=== PATIENT | female | born 1985 | race Caucasian/White ===

== ENCOUNTER 2018-02-25 10:07 | Emergency (ER) | payer OTHER ==
[2018-02-25 10:22] VITALS: BMI 19.8
[2018-02-25] MEDS ORDERED: SODIUM CHLORIDE 1,000 ML IV STA (10:44)
--- NOTE | 2018-02-25 10:44 | PDOC ---
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 She describes the pain as constant, pressure-like in sensation, 8/10 in severity, with radiation up to her left shoulder. The patient states that her symptoms are similar to what she experienced with her flare up of pancreatitis back in June 2015. She reports having 2 episodes of vomiting today; only brought up bile since she has not been able to eat or drink much due to the pain. The patient recently got back from [employer] on Friday 02/23 and reports increased alcohol intake during her trip. She is concerned if this could be the cause of her current symptoms. She also endorses subjective fevers, chills, weakness, decreased urine output, and lower back pain. The patient denies any diarrhea or hematochezia. Denies any chest pain or shortness of breath. Denies any frequency, urgency, hesitancy, dysuria, or hematuria. Allergies: sulfasalazine Social History: Current everyday smoker. Recovered alcoholic. Surgical History: None reported. GI: Dr. Geoffrey Phoenix -- [phone] ([place]) <Cee Walker - Last Filed: 02/25/18 14:04> - General History Source: Patient Exam Limitations: No Limitations <Janae Cui - Last Filed: 02/25/18 15:49> - General Chief Complaint: Pain Stated Complaint: ABDOMINAL PAIN Time Seen by Provider: 02/25/18 10:38 Past History <Cee Walker - Last Filed: 02/25/18 14:04> - Past Medical History COPD: No GI Disorders: Yes (GASTROPARESIS,GASTROENTERITIS) Thyroid Disease: Yes (HYPOTHRYOID) Other medical history: PANCREATITIS - Suicide/Smoking/Psychosocial Hx Smoking History: Current every day smoker Number of Cigarettes Smoked Daily: 2 Information on smoking cessation initiated: Yes 'Breaking Loose' booklet given: 02/25/18 Hx Alcohol Use: Yes Drug/Substance Use Hx: No Substance Use Type: Alcohol <Janae Cui - Last Filed: 02/25/18 15:49> - Past Medical History Allergies/Adverse Reactions: Allergies Allergy/AdvReac Type Severity Reaction Status Date / Time sulfasalazine Allergy Severe Difficulty Verified 02/25/18 10:15 Breathing Home Medications: Ambulatory Orders Linaclotide [Linzess] 290 mcg PO DAILY 02/25/18 Ondansetron [Zofran Odt -] 4 mg SL TID PRN #9 od.tablet 02/25/18 Thyroid [[place] Thyroid] 60 mg PO DAILY 02/25/18 Review of Systems - Review of Systems Able to Perform ROS?: Yes Comments:: 02/25/18 11:38 GENERAL/CONSTITUTIONAL: (+)Subjective fevers, chills, weakness. No sweats. HEAD, EYES, EARS, NOSE AND THROAT: No change in vision or hearing. No ear pain or discharge. No sore throat or mouth pain. No difficulty swallowing. No congestion. CARDIOVASCULAR: No chest pain or palpitations, syncope or edema. RESPIRATORY: No SOB, cough, wheezing, or hemoptysis. GASTROINTESTINAL (+)nausea, vomiting, diffuse abdominal pain, worse in LLQ. No diarrhea or constipation. No bloody stools. GENITOURINARY: (+)Decrease urine output. No hematuria, dysuria, frequency, urgency. MUSCULOSKELETAL: No joint or muscle swelling or pain. No neck or back pain. SKIN: No rash or changes in skin color or lesions. NEUROLOGIC: No headache, vertigo, loss of consciousness, or change in strength/ sensation. No gait instability. HEMATOLOGIC/LYMPHATIC: No anemia, easy bruising/bleeding, or history of blood clots. ALLERGIC/IMMUNOLOGIC: No allergies All other systems reviewed and negative, or as documented in HPI. 02/25/18 14:02 <Cee Walker - Last Filed: 02/25/18 14:04> *Physical Exam - Vital Signs Last Vital Signs Temp Pulse Resp BP Pulse Ox 98.6 F 117 H 18 129/82 99 02/25/18 10:15 02/25/18 10:15 02/25/18 10:15 02/25/18 10:15 02/25/18 10:15 - Physical Exam Comments: 02/25/18 11:38 General: (+)Warm to touch. Well appearing, awake and alert, NAD. HEENT: NCAT, PERRL, EOMI, clear conjunctiva, anicteric, moist mucus membranes, clear oropharynx, no oral lesions.. Neck: neck supple, FROM Resp: CTAB, normal and even respirations, no respiratory distress CVS: RRR, no murmurs, 2+ peripheral pulses throughout, no peripheral edema Abdomen: (+)Diffuse abdominal tenderness, worse in the LLQ. soft, ND, no peritoneal signs. Back: nontender, normal inspection and ROM MSK: (+)Left flank tenderness. No edema, MARK x4, ROM intact. No clubbing or cyanosis. normal bulk and tone. Neuro: alert, oriented appropriately; no focal neurologic deficits Skin: warm and well perfused, cap refill <2 sec, normal color <Cee Walker - Last Filed: 02/25/18 14:04> - Vital Signs Last Vital Signs Temp Pulse Resp BP Pulse Ox 98.6 F 117 H 18 129/82 99 02/25/18 10:15 02/25/18 10:15 02/25/18 10:15 02/25/18 10:15 02/25/18 10:15 <Janae Cui - Last Filed: 02/25/18 15:49> Heart Score/ECG Review - ECG Impressions Comment:: 02/25/18 15:24 EKG normal sinus rhythm, no interval abnormalities, narrow QRS, ST and T wave segments and morphology normal. Nonspecific T wave abnormalities, in III, AVF, with TWI in III. <Janae Cui - Last Filed: 02/25/18 15:49> ED Treatment Course - LABORATORY CBC & Chemistry Diagram: 02/25/18 10:46 02/25/18 10:46 - ADDITIONAL ORDERS Additional order review: Laboratory Results 02/25/18 10:46 Serum , Qual Negative 02/25/18 10:46 RBC 3.35 L MCV 94.8 MCHC 32.2 RDW 16.5 H Neutrophils % 68.0 Lymphocytes % 24.1 Monocytes % 7.4 Eosinophils % 0.2 Basophils % 0.3 - Medications Given in the ED: ED Medications Discontinued Medications Generic Name Dose Route Start Last Admin Trade Name Freq PRN Reason Stop Dose Admin Acetaminophen 1,000 mg 02/25/18 11:23 02/25/18 11:26 Ofirmev Injection - IVPB 02/25/18 11:24 1,000 mg ONCE ONE Administration Metoclopramide HCl 10 mg 02/25/18 11:17 02/25/18 11:25 Reglan Injection - IVPUSH 02/25/18 11:18 10 mg ONCE ONE Administration Morphine Sulfate 4 mg 02/25/18 11:16 02/25/18 11:25 Morphine Injection - IVPUSH 02/25/18 11:17 Not Given ONCE ONE <Cee Walker - Last Filed: 02/25/18 14:04> - LABORATORY CBC & Chemistry Diagram: 02/25/18 10:46 02/25/18 10:46 <Janae Cui - Last Filed: 02/25/18 15:49> Medical Decision Making - Medical Decision Making 02/25/18 11:25 32 YOF with AP, n/v x 1 day, h/o gastroparesis, ETOH pancreatitis, hypothyroidism, GERD, gastroenteritis. DDx abdominal pain: Renal colic, biliary colic, GERD, PUD, esophageal spasm, pancreatitis, hepatitis, constipation, colitis, gastroenteritis, cholecystitis, UTI, pyelonephritis, hernia, appendicitis, diverticulitis Vital signs reviewed, notable for tachycardia, likely from pain. tachycardia resolved. Prior notes reviewed, including admissions, discharges and consultations. laboratory results and imaging reviewed, basic labs with mild anemia, + hypokalemia to 2.9 with nonspecific EKG. also notable for significant elevations in AST/ALT, with AST in 300s, ALT in 100s, elevated total bili. lipase normal. neg preg test. UA_no signs of infection, +urobilinogen, hyaline casts, epithelials, proteins. CXR_clear. RUQ sono unremarkable, diffuse fatty liver. no fluid, normal pancreas and biliary tract. no hydronephrosis. EKG normal sinus rhythm, no interval abnormalities, narrow QRS, ST and T wave segments and morphology normal. Nonspecific T wave abnormalities, in III, AVF, with TWI in III. ED course: given pepcid, IVF, reglan, tylenol with clinical improvement. requesting food, and alexi PO hydration. called to Dr. Phoenix, primary [place], who agrees with plan, last results 06/2016 when she was still using etoh at the time with normal bili, LFT elevations in AST and ALT 175 and 114 respectively. did also recommend admission based on derangements and further workup. pt was offered admission for hydration, pain control, monitor lytes and supportive care. Note: The patient insists on leaving the emergency dept and is signing out against medical advice. The patient understands the risks and complications that may result from the refusal of medical care and admission which includes cardiac arrest, severe infection, dehydration, myocardial infarction, arrhythmias, stroke, respiratory failure, electrolyte derangements, coma, pancreatitis, liver failure, bleeding, perforation, obstruction, intra abdominal infection, coma, severe disability and . The patient has the mental capacity of understanding the risks of refusing care and is capable of making an informed decision. The patient was instructed to return to the emergency department should [x] change [x] mind regarding medical care or should [x] condition worsen. The patient signed the Against Medical Advice form. 02/25/18 15:49 <Janae Cui - Last Filed: 02/25/18 15:49> *DC/Admit/Observation/Transfer - Attestations Scribe Attestion: 02/25/18 11:38 Documentation prepared by Cee Walker, acting as medical typist for Janae Cui MD. <Cee Walker - Last Filed: 02/25/18 14:04> - Discharge Dispostion Decision to Admit order: No - Attestations Physician Attestion: 02/25/18 15:46 I, Janae Cui MD, attest that this document has been prepared under my direction and personally reviewed by me in its entirety. I further attest, that it accurately reflects all work, treatment, procedures and medical decision -making performed by me. <Janae Cui - Last Filed: 02/25/18 15:49> Diagnosis at time of Disposition: Hypokalemia, Abdominal pain, Alcohol dependence - Discharge Dispostion Disposition: AGAINST MEDICAL ADVICE Condition at time of disposition: Fair - Prescriptions Prescriptions: Ondansetron [Zofran Odt -] 4 mg SL TID PRN #9 od.tablet PRN Reason: Nausea And/Or Vomiting - Referrals Referrals: Kamryn Gray MD [Staff Physician] - [facility] [Provider Group] [facility] [place] [facility] [place] [Provider Group] - Patient Instructions Printed Discharge Instructions: DI for Hypokalemia, DI for Abdominal Pain-Adult , Getting to the Heart of a Healthy Diet: Alcohol, The Best Diet for You, Eating a Diet Rich in Fruits and Vegetables Additional Instructions: Discussion at the bedside with patient and family. Pt has capacity to make medical decisions. Discussed indications for treatment and admission, management plan, risks and benefits. There is no evidence of psychosis, altered mental status or intoxication. Pt understands the nature of condition and treatment plan, including potential risks but not limited to: cardiac arrest, severe infection, dehydration, myocardial infarction, arrhythmias, stroke, respiratory failure, electrolyte derangements, coma, pancreatitis, liver failure , bleeding, perforation, obstruction, intra abdominal infection, coma, severe disability and . Pt will be treated with Zofran three times a day as needed and close follow up with primary care doctor with reevaluation, as well as plumbing engineer Dr. Phoenix who we called in the Department.. Return precautions advised, call 911 immediately if severe life threatening symptoms or concerns.. Pt has verbalized understanding of information provided, questions answered. you are to follow up with a primary doctor, referrals provided as well as your plumbing engineer, who we called today to give update.
[2018-02-25] MEDS ORDERED: morphine CARPU-JECT 4 MG/1 ML DISP.SYRIN IVPUSH ONE (11:16)
[2018-02-25] MEDS ORDERED: METOCLOPRAMIDE HCL INJECTION 10 MG/2 ML VIAL IVPUSH ONE (11:17)
[2018-02-25] MEDS ORDERED: morphine SULFATE 4 MG/ML VIAL ONE (11:19)
[2018-02-25] MEDS ORDERED: METOCLOPRAMIDE HCL INJECTION 10 MG/2 ML VIAL ONE (11:19)
[2018-02-25] MEDS ORDERED: ACETAMINOPHEN 1000 MG/100 ML VIAL (NON FORMULARY) IVPB ONE (11:23)
[2018-02-25] MEDS ORDERED: ACETAMINOPHEN INJECTION 100 ML IVPB ONE (11:25)
[2018-02-25 11:31] LABS: BASO % 0.3 % (0-2.0); EOS % 0.2 % (0-4.5); HEMATOCRIT 31.7 % (32.4-45.2); HEMOGLOBIN 10.2 GM/dL (10.7-15.3); LYMPH % 24.1 % (8-40); MCH 30.6 pg (25.7-33.7); MCHC 32.2 g/dl (32.0-36.0); MEAN CELL VOLUME 94.8 fl (80-96); MONO % 7.4 % (3.8-10.2); RBC 3.35 M/mm3 (3.60-5.2); RDW 16.5 % (11.6-15.6); WHITE BLOOD COUNT 4.9 K/mm3 (4.0-10.0)
[2018-02-25 11:42] LABS: ALBUMIN 4.3 g/dl (3.4-5.0); ALK PHOS 168 U/L (45-117); ANION GAP 18 MMOL/L (8-16); BILIRUBIN,TOTAL 1.7 mg/dL (0.2-1); BLOOD UREA NITROGEN 7 mg/dL (7-18); CALCIUM 9.4 mg/dL (8.5-10.1); CHLORIDE 90 mmol/L (98-107); CO2 26 mmol/L (21-32); CREATININE 0.7 mg/dL (0.55-1.3); GLUCOSE,RANDOM 146 mg/dL (74-106); LIPASE 126 U/L (73-393); SGOT/AST 316 U/L (15-37); SGPT/ALT 140 U/L (13-61); SODIUM 134 mmol/L (136-145); TOT PROT 8.2 g/dl (6.4-8.2)
[2018-02-25 11:45] LABS: POTASSIUM 2.9 mmol/L (3.5-5.1)
[2018-02-25] MEDS ORDERED: POTASSIUM CHLORIDE TABS 20 MEQ TABLET.ER (FP) PO ONE ×3 (11:45→12:30)
[2018-02-25] MEDS ORDERED: FAMOTIDINE 20 MG/50 ML IVPB 20 MG/50 ML MG IVPB ONE ×2 (11:45→12:17)
[2018-02-25 11:48] LABS: URINE APPEARANCE CLOUDY; URINE COLOR AMBER; URINE GLUCOSE (UA) 1+ (NEGATIVE); URINE KETONE 1+ (NEGATIVE); URINE LEUK ESTERASE TRACE (NEGATIVE); URINE NITRITE NEGATIVE (NEGATIVE); URINE PROTEIN 3+ (NEGATIVE); URINE UROBILINOGEN 4.0 E.U/dl mg/dL (0.2-1.0)
[2018-02-25 12:05] LABS: EPI CELLS MANY /HPF (FEW); GRANULAR CASTS 19 /lpf; URINE HYALINE CAST 269 /lpf; URINE MUCUS MANY
[2018-02-25] MEDS ORDERED: KCL 10 MEQ IVPB 10 MEQ/100 ML INFUS.BAG IVPB ONE ×3 (12:16→14:07)
[2018-02-25] MEDS: KCL 10 MEQ IVPB 10 MEQ/100 ML INFUS.BAG IVPB SCH ×3 (12:30→14:16)
[2018-02-25 14:11] VITALS: BP 133/83; PULSE 93
[2018-02-25 14:19] VITALS: TEMP 98.6
--- NOTE | 2018-02-26 10:36 | EKG ---
Test Reason : Blood Pressure : / mmHG Vent. Rate : 093 BPM Atrial Rate : 093 BPM P-R Int : 128 ms QRS Dur : 092 ms QT Int : 378 ms P-R-T Axes : 049 019 008 degrees QTc Int : 469 ms NORMAL SINUS RHYTHM NORMAL ECG NO PREVIOUS ECGS AVAILABLE Confirmed by BARBARA KUMAR, BRENDA ([id number]) on 02/26/2018 10:36:29 AM Referred By: Confirmed By:BRENDA JIMENEZ MD
== END 2018-02-25 16:19 | disposition left against medical advice (07) ==
LOC: JER 10:07
PROC: 3E033GC Introduction of Other Therapeutic Substance into Peripheral Vein, Percutaneous Approach (ICD-10-PCS; principal; 2018-02-25)
PROC: 3E0337Z Introduction of Electrolytic and Water Balance Substance into Peripheral Vein, Percutaneous Approach (ICD-10-PCS; 2018-02-25)
PROC: 3E033GC Introduction of Other Therapeutic Substance into Peripheral Vein, Percutaneous Approach (ICD-10-PCS; 2018-02-25)
PROC: 3E033NZ Introduction of Analgesics, Hypnotics, Sedatives into Peripheral Vein, Percutaneous Approach (ICD-10-PCS; 2018-02-25)
PROC: 3E0337Z Introduction of Electrolytic and Water Balance Substance into Peripheral Vein, Percutaneous Approach (ICD-10-PCS; 2018-02-25)
DX: E87.6 Hypokalemia (principal); F10.20 Alcohol dependence, uncomplicated; R10.84 Generalized abdominal pain; E03.9 Hypothyroidism, unspecified; Z87.19 Personal history of other diseases of the digestive system
CPT/HCPCS: 36415; 71046-TC-FY; 76705-TC; 80053; 81003; 81015; 83690; 84703; 85025; 87086; 93005; 93010; 99283-25; J0131; J7030

== ENCOUNTER 2019-06-22 16:28 | Emergency (ER) | payer OTHER ==
[2019-06-22 17:11] VITALS: BMI 20.5
[2019-06-22] MEDS ORDERED: chlordiazePOXIDE HCL 25 MG CAPSULE PO ONE (17:19)
[2019-06-22] MEDS ORDERED: FOLIC ACID INJECTION - 1 MG, THIAMINE HCL 100 MG, MULTIVIT INJECTION ADULT 10 ML in SOD... IVPB ONE (17:21)
--- NOTE | 2019-06-22 17:23 | PDOC ---
History of Present Illness - General Chief Complaint: Seizure Stated Complaint: SEIZURES Time Seen by Provider: 06/22/19 17:13 History Source: Patient, Parent(s) Exam Limitations: No Limitations - History of Present Illness Initial Comments: 06/22/19 17:22 GI: Dr. 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 Patient was at work, lost consciousness, reportedly was shaking, fell into the arms of a coworker who lowered her to the ground and protected her head. No urinary incontinence, no tongue bit, no head trauma. Re- gained conciousness once in the EMS vehicle. Reports history of chronic alcohol abuse, recently went to the [facility] (4 hour flight), reports drinking heavily ( last drink Saturday night), history of detox / relapse alcohol abuse. Denies any prodrome symptoms, denies any symptoms here in the department. Denies chest pain, SOB, numbness / tingling, fevers, chills, recent illness, back pain, abdominal pain, headache, nausea, vomiting, dysuria. All: Sulfasalazine Meds: Per chart PMH: As above PSH: Denies SHx: Current everyday smoker. Alcoholic (binge drinker, prior rehab/AA). Past History - Travel Traveled outside of the country in the last 30 days: Yes If so, where?: [facility] Close contact w/someone who was outside of country & ill: No - Past Medical History Allergies/Adverse Reactions: Allergies Allergy/AdvReac Type Severity Reaction Status Date / Time sulfasalazine Allergy Severe Difficulty Verified 06/22/19 16:59 Breathing Home Medications: Ambulatory Orders Linaclotide [Linzess] 290 mcg PO DAILY 02/25/18 Ondansetron [Zofran Odt -] 4 mg SL TID PRN #9 od.tablet 02/25/18 Thyroid [[place] Thyroid] 75 mg PO DAILY 02/25/18 Cephalexin [Keflex] 500 mg PO BID 10 Days #20 capsule 06/22/19 COPD: No GI Disorders: Yes (GASTROPARESIS,GASTROENTERITIS) Thyroid Disease: Yes (HYPOTHRYOID) - Psycho Social/Smoking Cessation Hx Smoking History: Current some day smoker Have you smoked in the past 12 months: Yes Number of Cigarettes Smoked Daily: 2 Information on smoking cessation initiated: Yes 'Breaking Loose' booklet given: 02/25/18 Hx Alcohol Use: Yes Drug/Substance Use Hx: No Substance Use Type: Alcohol Review of Systems - Review of Systems Able to Perform ROS?: Yes Is the patient limited Tunisian proficient: Yes Constitutional: No: Chills, Fever, Weakness HEENTM: No: Nose Congestion, Throat Pain Respiratory: No: Cough, Shortness of Breath Cardiac (ROS): No: Chest Pain, Edema, Irregular Heart Rate, Lightheadedness, Palpitations, Syncope, Chest Tightness ABD/GI: No: Constipated, Diarrhea, Nausea, Poor Appetite, Poor Fluid Intake, Vomiting : No: Burning, Dysuria, Frequency, Flank Pain Musculoskeletal: No: Back Pain, Muscle Pain, Muscle Weakness Integumentary: No: Bruising, Pruritus, Rash Neurological: Yes: Seizure. No: Headache, Numbness, Tingling, Weakness Psychiatric: No: Stressors, Change in Appetite Endocrine: No: Increased Thirst, Increased Urine Hematologic/Lymphatic: No: Anemia, Blood Clots, Easy Bleeding All Other Systems: Reviewed and Negative *Physical Exam - Vital Signs Last Vital Signs Temp Pulse Resp BP Pulse Ox 97.5 F L 103 H 16 137/95 97 06/22/19 16:42 06/22/19 16:42 06/22/19 16:42 06/22/19 16:42 06/22/19 16:42 - Physical Exam 06/22/19 17:49 Vitals reviewed, AFVSS GEN: Well appearing, appears stated age, NAD, comfortable. AAOx3. HEENT: NCAT, EOMI, PERRL. Sclera anicteric, noninjected. No facial asymmetry. Moist mucous membranes. Normal voice. Trachea midline. CV: RRR, S1/S2, no murmurs / rubs / gallops appreciated. LUNG: CTAB, normal work of breathing. No wheezes, rales, rhonchi. No cough. Speaking full sentences. GI: Soft, NTND, +BS, no guarding, no rebound. No masses. Neg CVAT b/l. EXTREMITIES: 2+ distal pulses. No LE edema. No obvious deformities of all extremities. SKIN: Warm, dry, no rashes appreciated, non-jaundiced. PSYCH: Normal mood and affect. Cooperative and appropriate. NEURO: CN grossly intact. Moving all extremities well. Normal strength and sensation. 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 History notable for alcoholism, recent intox, detox within 48 hours. Exam within normal limits, tachycardic to 100s, afebrile. DDX: Seizure, syncope, r/o occult infection, electrolyte disturbance, symptomatic anemia. - CBC, CMP, Lipase, Cardiac, Coags, ETOH - UA, UCx, UPreg, UTox - EKG - Banana Bag - Librium 06/22/19 19:08 - Pancytopenia (3.5, 7.3, 53) - ETOH 3 - UTI 06/22/19 19:12 - AST/ALT: 140/40 - Hyponatremia, Hypokalemia (2.9), Hypochloremia - UTox negative, negative 06/22/19 19:39 - 2g Mg IV - 40 mEq K PO - Keflex 500mg, BID 10 days Patient requested to leave AMA. Patient is determined to be of sound mind and reasoning. The patient fully understands the care they are refusing and the risks associated with leaving before complete medical evaluation as explained by the medical team. The patient has been provided with a discharge summary, return precautions, and the reassurance that the Emergency Department will resume workup if the patient changes their mind. Immediate primary care follow up has been urged. Discharge - Discharge Information Problems reviewed: Yes Clinical Impression/Diagnosis: Hypokalemia, Hypomagnesemia, Hyponatremia, Pancytopenia, Tachycardia, Seizure Alcohol dependence Qualifiers: Substance use status: in withdrawal Complication of substance-induced condition : uncomplicated Qualified Code(s): F10.230 - Alcohol dependence with withdrawal , uncomplicated Alcohol withdrawal seizure Qualifiers: Complication of substance-induced condition: uncomplicated Qualified Code(s): F10.230 - Alcohol dependence with withdrawal, uncomplicated Condition: Stable Disposition: AGAINST MEDICAL ADVICE - Additional Discharge Information Prescriptions: Cephalexin [Keflex] 500 mg PO BID 10 Days #20 capsule - Follow up/Referral Referrals: [facility] [place] [place] [facility] [place] [Provider Group] - Patient Discharge Instructions Additional Instructions: You are leaving against medical advice and refusing evaluation and treatment of pancytopenia including anemia, electrolyte disturbances including hypokelamia, seizure. It is essential that you follow up with a primary care physician within the next 1-2 days. Since you do not have a primary care doctor, a clinic referral has been provided. Please call them to arrange an appointment. care home care and care coordination is essential to your health. Discuss your iron and anemia with them for continued care. As discussed, DO NOT drive or operate heavy / dangerous machinery for the next 2 days. Continue to take your home magnesium and potassium as directed on the package label as your levels are dangerously low today. Antibiotics have been sent to your pharmacy. Pick these up and take them as directed for the full 10 day course. Please return to the Emergency Department if you change your mind and wish to continue evaluation of your symptoms or if you experience any of the following: - worsening of your symptoms - chest pain - shortness of breath and/or difficulty breathing - seizure - changes in behavior - lightheadedness, and/or dizziness - severe abdominal pain - severe or bloody vomiting - bloody diarrhea - inability to eat or drink - anything that concerns you - Post Discharge Activity Work/Back to School Note: Back to Work
[2019-06-22] MEDS ORDERED: chlordiazePOXIDE HCL 25 MG CAPSULE ONE (17:41)
--- NOTE | 2019-06-22 18:09 | PDOC ---
Documentation entered by Gabriela Amin SCRIBE, acting as scribe for Karla Jaimes MD. Karla Jaimes MD: This documentation has been prepared by the naveenibe, Gabriela Amin SCRIBE, under my direction and personally reviewed by me in its entirety. I confirm that the documentation accurately reflects all work, treatment, procedures, and medical decision making performed by me. Attending Attestation - Resident Resident Name: Maxim Day - ED Attending Attestation I have performed the following: I have examined & evaluated the patient, The case was reviewed & discussed with the resident, I agree w/resident's findings & plan, Exceptions are as noted - HPI HPI: 06/22/19 18:02 The patient is a 34-year-old female with a past medical history significant for gastroparesis, gastroenteritis, hypothyroidism, and alcohol-induced pancreatitis who presents to the emergency department s/p a witnessed seizure episode. The patient had a witnessed seizure at work, and her colleague noticed the patient shaking, she grabbed the patient and gently lowered her onto the floor. The colleague held the patients head, so she didnt hit her head, no tongue biting, or urinary incontinence. The patient reports she was on vacation recently, where she admits to drinking heavily. The patient reports on Saturday she abruptly stopped drinking, Denies drinking since. The patient denies wanting detox. - Physicial Exam PE: 06/22/19 18:03 GENERAL: Well-appearing, well-nourished. No apparent distress. HEENT: Normocephalic, atraumatic. PERRL, EOM intact. CARDIOVASCULAR: Normal S1, S2. Regular rate and rhythm. PULMONARY: Clear to auscultation bilaterally. ABDOMEN: Soft, non-distended, non-tender. EXTREMITIES: Normal ROM in all four extremities. No gross deformities. SKIN: Warm, dry. No rash NEUROLOGICAL: No focal neurological deficits. - Medical Decision Making 06/22/19 18:05 34 yo female had a witnessed seizure that was less than 1 minute admits to etoh abuse and had been drinking heavily on vacation and stopped drinking Saturday night -at work today her colleague caught her when she stated to shake and lowered her to the floor and held her head so she did not hit anything -upon arrival she was alert and conversant with no tongue trauma and no urinary incontinence 06/22/19 19:41 Review of the labs shows a pancytopenia with a hemoglobin 7.3 and platelets only of 53,000 UA shows nitrate positive, elevated WBCs and will be treated for UTI pt has hypokalemia and hypomagnesia LFTs elevated pt needs admission for alcohol w/d, electrolyte abnormalities, pancytopenia, and a discussion about the risks of further alcohol withdrawal seizure and severe anemia and electrolyte abnormalities were explained to the pt but she admanetly refuses admission -it was stressed that fpr the next few days she should not drive a vehicle and or use any machinery because of the risk possible seizures pt signed out AMA
[2019-06-22 18:12] LABS: HEMATOCRIT 22.8 % (32.4-45.2); HEMOGLOBIN 7.3 GM/dL (10.7-15.3); MCH 29.9 pg (25.7-33.7); MCHC 31.9 g/dl (32.0-36.0); MEAN CELL VOLUME 93.5 fl (80-96); MEAN PLT VOLUME 9.2 fl (7.5-11.1); PLATELET COUNT 53 K/MM3 (134-434); RBC 2.44 M/mm3 (3.60-5.2); RDW 25.1 % (11.6-15.6); WHITE BLOOD COUNT 3.5 K/mm3 (4.0-10.0)
[2019-06-22 18:30] LABS: EPI CELLS 2.1 /HPF (0-5/HPF); HYALINE CASTS 8 /lpf (0-8); PH,URINE 5.5 (5.0-8.0); URINE APPEARANCE CLOUDY; URINE BACTERIA 3661.1 /hpf (NEGATIVE); URINE BILIRUBIN 2+ (NEGATIVE); URINE COLOR DK YELLOW; URINE GLUCOSE (UA) NEGATIVE (NEGATIVE); URINE KETONE 3+ (NEGATIVE); URINE LEUK ESTERASE 1+ (NEGATIVE); URINE NITRITE POSITIVE (NEGATIVE); URINE PROTEIN 4+ (NEGATIVE); URINE WBC 362 /hpf (0-5)
[2019-06-22 19:08] LABS: ALBUMIN 4.2 g/dl (3.4-5.0); ALK PHOS 76 U/L (45-117); ANION GAP 13 MMOL/L (8-16); CALCIUM 8.6 mg/dL (8.5-10.1); CHLORIDE 93 mmol/L (98-107); CO2 26 mmol/L (21-32); COCAINE, UR NEGATIVE ng/ml (CUTOFF=300); CREATININE 0.8 mg/dL (0.55-1.3); GLUCOSE,RANDOM 137 mg/dL (74-106); MAGNESIUM 0.7 mg/dL (1.8-2.4); METHADONE, UR NEGATIVE ng/ml (CUTOFF=300); OPIATES, URI NEGATIVE ng/ml (CUTOFF=300); PHENCYCLIDINE,URINE NEGATIVE ng/ml (CUTOFF=25); SGOT/AST 140 U/L (15-37); SGPT/ALT 48 U/L (13-61); SODIUM 132 mmol/L (136-145); URINE AMPHETAMINES NEGATIVE ng/ml (CUTOFF=500); URINE BARBITURATES NEGATIVE ng/ml (CUTOFF=200); URINE BENZODIAZEPINES NEGATIVE ng/ml (CUTOFF=200)
[2019-06-22 19:12] LABS: POTASSIUM 2.9 mmol/L (3.5-5.1)
[2019-06-22] MEDS ORDERED: MAGNESIUM SULF 50% (8.12 MEQ/2 ML-1 GM VIAL) IVPB ONE (19:34)
[2019-06-22] MEDS ORDERED: POTASSIUM CHLORIDE TABS 20 MEQ TABLET.ER (FP) PO ONE ×2 (19:35→20:05)
[2019-06-22] MEDS ORDERED: CEPHALEXIN MONOHYDRATE 500 MG CAPSULE (UD) PO ONE (19:36)
[2019-06-22 20:01] VITALS: BP 136/76; TEMP 98.3
[2019-06-22] MEDS ORDERED: CEPHALEXIN MONOHYDRATE 500 MG CAPSULE (UD) ONE (20:05)
[2019-06-22] MEDS ORDERED: MAGNESIUM SULF 50% (8.12 MEQ/2 ML-1 GM VIAL) ONE (20:05)
[2019-06-22 20:24] VITALS: PULSE 99
--- NOTE | 2019-06-23 09:18 | EKG ---
Test Reason : Blood Pressure : / mmHG Vent. Rate : 104 BPM Atrial Rate : 104 BPM P-R Int : 128 ms QRS Dur : 090 ms QT Int : 350 ms P-R-T Axes : 036 019 010 degrees QTc Int : 460 ms SINUS TACHYCARDIA OTHERWISE NORMAL ECG WHEN COMPARED WITH ECG OF 25-FEB-2018 14:03, NO SIGNIFICANT CHANGE WAS FOUND Confirmed by Junaid De La Torre MD ([id number]) on 06/23/2019 9:17:50 AM Referred By: Confirmed By:Junaid De La Torre MD
== END 2019-06-22 21:45 | disposition left against medical advice (07) ==
LOC: JER 16:28
PROC: 3E033GC Introduction of Other Therapeutic Substance into Peripheral Vein, Percutaneous Approach (ICD-10-PCS; principal; 2019-06-22)
PROC: 3E033GC Introduction of Other Therapeutic Substance into Peripheral Vein, Percutaneous Approach (ICD-10-PCS; 2019-06-22)
DX: G40.509 Epileptic seizures related to external causes, not intractable, without status epilepticus (principal); N39.0 Urinary tract infection, site not specified; E87.1 Hypo-osmolality and hyponatremia; F10.230 Alcohol dependence with withdrawal, uncomplicated; E87.6 Hypokalemia; E83.42 Hypomagnesemia; D61.818 Other pancytopenia; R00.0 Tachycardia, unspecified; Z88.2 Allergy status to sulfonamides; E03.9 Hypothyroidism, unspecified; F41.9 Anxiety disorder, unspecified; Z87.19 Personal history of other diseases of the digestive system
CPT/HCPCS: 36415; 80053; 80307; 81003; 82550; 82553; 82962; 83735; 84484; 84703; 85027; 93005; 93010; 99284-25; J7030